=== PATIENT | male | born 2000 | race Caucasian/White ===

== ENCOUNTER 2018-09-16 20:01 | Emergency (ER) | payer SELFPAY ==
[2018-09-16 20:07] VITALS: BP 124/74; PULSE 60; RESP 16; TEMP 36.6; O2SAT 98
--- NOTE | 2018-09-16 20:07 | W.ED.GENAD ---
Discharge Plan Disposition Patient Disposition: HOME Condition: Good Discharge Details Chief Complaint: DentalOral Clinical Impression: Fractured tooth Primary Care Provider: None,None ED Provider: Kaushal Hammond Discharge Instructions Instructions: Acute Dental Trauma (ED) Additional Instructions: The temporary filling will work for a day or 2. You may use Tylenol or Motrin if needed. You need to see a dentist RONNY. Please review the list that we have provided. Return to ED for fever, increasing pain/swelling/redness to the face, difficulty breathing, inability to swallow. Discharge Data Discharge Date/Time-TO BE ENTERED AT DEPARTURE: 09/16/18 20:53 Medical Decision Making Patient with dental fracture leading to decayed tooth with pulp and nerve exposure. There was no persistent pain, fever, swelling prior. I do not feel that this is related to dental infection but related to dental fracture. Antibiotics will not be started. Temporary filling placed in the area of fractured tooth by me without problems. Patient's pain almost immediately resolved. Patient referred to dentistry for follow-up RONNY. He is given a list of area dentists to contact in the morning. Return to ED for increasing pain, swelling, fever, erythema. HPI General Mode of arrival: ambulatory. Date/Time Provider Initiated Documentation: 09/16/18 20:07. Limitations to Documentation: no limitations. Information obtained by: patient and RN notes reviewed. HPI Narrative: Patient presents to ED with left lower molar pain after breaking off a piece of his tooth while eating chicken nuggets. He reports he had been having discomfort with chewing for a little bit. Tonight while eating chicken nuggets tooth completely broke off. He continues to have significant pain now. Previous to this he has had no fever, persistent pain, facial swelling. Related Data Allergies Allergy/AdvReac Type Severity Reaction Status Date / Time No Known Allergies Allergy Unverified 05/02/17 13:11 Review of Systems Constitutional Denies fever(s) ENT [facility] Medical History Asthma (Chronic) Social History Smoking/Tobacco Use Status: Former Tobacco Use Alcohol Intake: never Drug use: Daily Substance use type: marijuana Do you feel safe at home: Yes Do you feel safe in your relationship?: Yes Exam Const General: cooperative and comfortable Orientation: alert and oriented x3 HENMT Head: normal to inspection, normocephalic and atraumatic Face and sinus: normal facial exam Teeth and gingiva: gingiva normal, fair dentition and other (Tooth 18 fractured off with decay, pulp, nerve exposed.) Neck Neck: normal visual inspection and supple
[2018-09-16 20:53] VITALS: BP 124/74; PULSE 60; RESP 16; TEMP 36.6; O2SAT 98
== END 2018-09-16 20:53 | disposition home or self-care (01) ==
PROVIDERS: Emergency Provider Emergency Medicine
DX: S02.5XXB Fracture of tooth (traumatic), initial encounter for open fracture (principal); W22.8XXA Striking against or struck by other objects, initial encounter
CPT/HCPCS: 99282